=== PATIENT | female | born 1995 | race Caucasian/White ===

== ENCOUNTER 2016-11-11 19:39 | Emergency (ER) | payer OTHER ==
[2016-11-11 19:48] VITALS: BP 115/71; PULSE 81; RESP 18; TEMP 98.8; O2SAT 98
--- NOTE | 2016-11-11 20:45 | EDPHY ---
H & P Time Seen by Provider: 11/11/16 19:59 HPI/ROS: CHIEF COMPLAINT: Dog bite HISTORY OF PRESENT ILLNESS: The patient is a 20-year-old female who presents emergency department after sustaining a dog bite to her right pinky yesterday. Patient has mild discomfort on the digit. No radiation of pain. There is no significant redness or swelling. Patient states she has full range of motion. She sustained no other injury. Patient states her tetanus shot is up-to-date. REVIEW OF SYSTEMS: Negative Past Medical/Surgical History: Denies Social history: The patient denies smoking Smoking Status: Never smoked Physical Exam: Vitals noted General Appearance: Alert and no distress. Head: Pupils equal. Normal. Respiratory: No respiratory distress. Cardiac: regular rate and rhythm. Extremities: patient's left distal pinky has a puncture lesion and a small abrasion. There is no significant swelling. She has full range of motion. Neurovascularly intact distally. Skin: No rashes or lesions. Neuro: Alert. Normal mood and affect. Constitutional: Initial Vital Signs Temperature (C) 37.1 C 11/11/16 19:46 Heart Rate 81 11/11/16 19:46 Respiratory Rate 18 11/11/16 19:46 Blood Pressure 115/71 11/11/16 19:46 O2 Sat (%) 98 11/11/16 19:46 O2 Delivery Mode Room Air Allergies/Adverse Reactions: No Known Allergies Allergy (Unverified 11/11/16 19:48) Home Medications: Medication Instructions Recorded Amoxicillin/Clavulanate Pot 875 mg PO BID 7 Days 11/11/16 [Augmentin 875 mg tab] Medical Decision Making ED Course/Re-evaluation: I discussed possible complications with the patient. I answered all her questions. She will be treated with Augmentin. She was given warnings prior to leaving. She will return with worsening symptoms. Differential Diagnosis: My differential includes but is not limited to laceration, abrasion, cellulitis , abscess, fracture Departure - Departure Disposition: Home, Routine, Self-Care Clinical Impression: Dog bite Qualifiers: Encounter type: initial encounter Qualified Code(s): W54.0XXA - Bitten by dog, initial encounter Condition: Good Instructions: Animal Bite (ED) Additional Instructions: Return with increasing pain, redness, fever or any other concerns. Take your entire course of antibiotics. Referrals: Jorge Alberto Arzate MD [Primary Care Provider] - As per Instructions Prescriptions: Amoxicillin/Clavulanate Pot [Augmentin 875 mg tab] 875 mg PO BID 7 Days
== END 2016-11-11 20:59 | disposition home or self-care (01) ==
DX: S61.257A Open bite of left little finger without damage to nail, initial encounter (principal); W54.0XXA Bitten by dog, initial encounter